=== PATIENT | male | born 1985 | race Hispanic/Latino ===

== ENCOUNTER 2021-04-01 10:53 | Emergency (ER) | payer OTHER, SELFPAY ==
[2021-04-01 10:55] VITALS: BP 113/67; PULSE 70; RESP 14; TEMP 36.4; O2SAT 99; BMI 25.7
--- NOTE | 2021-04-01 11:02 | DI.RAD.S_ITS ---
PROCEDURE: XR ANKLE RT MIN 3V INDICATIONS: right ankle pain, martial arts, another landed on it TECHNIQUE: 3 views of the ankle were acquired. COMPARISON: None. FINDINGS: Bones: No fractures or dislocations. Ankle mortise is normally aligned. No suspicious bony lesions. Soft tissues: No tibiotalar joint effusion. Achilles tendon appears normal. Generalized soft tissue swelling noted. IMPRESSION: Soft tissue swelling without fracture or foreign body Approved by: Jose Spain M.D. on 04/01/2021 at 10:36
[2021-04-01 11:19] VITALS: PULSE 64
--- NOTE | 2021-04-01 11:53 | ED_ITS ---
HPI - Extremity Injury (Lower) General Chief Complaint: Extremity Injury, Lower Stated Complaint: Someone landed on right ankle Time Seen by Provider: 04/01/21 11:53 Source: patient Mode of arrival: Ambulatory History of Present Illness HPI Narrative: Patient is a 35-year-old male who presents with right ankle pain and swelling. Said he was practicing [employer] last night when his foot got caught up. He has significant swelling laterally. He has very minor knee pain he says is knee is not too bad more concerned about his ankle. He is unable to ambulate he the crutches at [employer] last night. No other injury. No numbness tingling or weakness Related Data Home Medications Medication Instructions Recorded Confirmed No Known Home Medications 04/01/21 04/01/21 Allergies Allergy/AdvReac Type Severity Reaction Status Date / Time No Known Drug Allergies Allergy Verified 04/01/21 11:05 Review of Systems Review of Systems Narrative: GENERAL: Denies chills,fever HEENT: Denies throat pain RESPIRATORY: Denies dyspnea, cough, wheezing CARDIOVASCULAR: Denies chest pain, palpitations GASTROINTESTINAL: Denies nausea, vomiting MUSCULOSKELETAL: See HPI SKIN: No rash, no laceration, no pruritus NEUROLOGIC: Denies weakness, dizziness, headache, numbness 8 point review of systems is negative except for those stated above and HPI Patient History Social History Smoking Status: Never smoker Smoking Status: Never smoker alcohol intake frequency: 0-2 drinks per day Substance Use Type: does not use Exam Initial Vital Signs Initial Vital Signs: Vital Signs Temperature 97.6 F 04/01/21 10:55 Pulse Rate 70 04/01/21 10:55 Respiratory Rate 14 04/01/21 10:55 Blood Pressure 113/67 04/01/21 10:55 Pulse Oximetry 99 04/01/21 10:55 GENERAL: Well-appearing, well-nourished and in no acute distress. CARDIOVASCULAR: peripheral pulses in tact, cap refill <2 sec RESPIRATORY: No respiratory distress, speaks in full sentences without difficulty EXTREMITIES: Normal range of motion, no clubbing or edema. Neurovascularly intact Right lower extremity swelling tender laterally distal pedal pulse intact Achilles intact foot is stable knee is stable no significant knee swelling pain on fibular head NEUROLOGICAL: Cranial nerves II through XII grossly intact. Normal gait and speech. SKIN: Warm, dry, no petechiae, no rashes or lesions. Course Orders Ordered: ED Orders 04/01/21 11:02 XR ankle RT min 3V Stat Discontinued Medications Ibuprofen (Ibuprofen 400 Mg Tablet) 800 mg PO NOW ONE Stop: 04/01/21 11:58 Last Admin: 04/01/21 12:12 Dose: 800 mg Documented by: SEBASTIAN Vital Signs Vital signs: Vital Signs - 8 hr 04/01/21 10:55 04/01/21 11:19 Temperature 97.6 F Pulse Rate 70 Pulse Rate [Right Dorsalis Pedis] 64 Respiratory Rate 14 Blood Pressure 113/67 Pulse Oximetry 99 MDM - Extremity Injury (Lower) Imaging Data Extremity x-ray #1: Radiologist's Impression: PROCEDURE:? XR ANKLE RT MIN 3V ? INDICATIONS:? right ankle pain, martial arts, another landed on it ? TECHNIQUE:? 3 views of the ankle were acquired.? ? COMPARISON:? None. ? FINDINGS:? ? Bones:? No fractures or dislocations.? Ankle mortise is normally aligned.? No suspicious bony lesions.? ? Soft tissues:? No tibiotalar joint effusion.? Achilles tendon appears normal.? Generalized soft tissue swelling noted. ? ? IMPRESSION:? Soft tissue swelling without fracture or foreign body ? Approved by: Jose Spain M.D. on 04/01/2021 at 10:36? Discharge Plan Departure Patient Disposition: Home Clinical Impression: Ankle sprain and strain Instructions: Ankle Sprain Activity Restrictions/Additional Instructions: *You have been diagnosed with ankle sprain *What to do: Elevate Ice, use crutches as needed may start weight-bearing as tolerated *Continue to take medications as directed Ibuprofen 600 mg every 8 hours if needed for [id number] *Follow up with your primary care provider in 2-3 days or call [phone] *Return to ER if you should have increasing pain continued pain for more than 10 days or any new, worsening or concerning symptoms Prescriptions: No Action No Known Home Medications 0RF
[2021-04-01] MEDS: IBUPROFEN 400 MG TABLET 800 MG PO (12:12)
== END 2021-04-01 12:21 | disposition home or self-care (01) ==
PROVIDERS: Emergency Provider Emergency Medicine
DX: S93.401A Sprain of unspecified ligament of right ankle, initial encounter (principal); M25.561 Pain in right knee; X58.XXXA Exposure to other specified factors, initial encounter; Y93.75 Activity, martial arts
CPT/HCPCS: 73610; 99283; 99284